=== PATIENT | male | born 1960 | race African-American/Black ===

== ENCOUNTER 2016-08-22 03:37 | Emergency (ER) | payer MEDICAID ==
[~2016-08-22] VITALS: Ht 182.9 cm; Wt 100.7 kg
[2016-08-22 03:39] VITALS: BP 135/88
[2016-08-22] MEDS ORDERED: HYDROcodone/APAP 5/325 TABLET ONE (04:22)
[2016-08-22] MEDS ORDERED: AMOXICILLIN/CLAV 875-125MG TABLET PO ONE (04:30)
[2016-08-22] MEDS ORDERED: HYDROcodone/APAP 5/325 TABLET PO ONE (04:30)
== END 2016-08-22 04:37 | disposition home or self-care (01) ==
LOC: ED 04:20
DX: J20.9 Acute bronchitis, unspecified (principal); J01.00 Acute maxillary sinusitis, unspecified; F17.200 Nicotine dependence, unspecified, uncomplicated
CPT/HCPCS: 99283

== ENCOUNTER 2016-09-25 18:54 | Emergency (ER) | payer MEDICAID, OTHER ==
[~2016-09-25] VITALS: Ht 182.9 cm; Wt 97.6 kg
[2016-09-25 18:56] VITALS: BP 128/84
== END 2016-09-25 21:05 | disposition home or self-care (01) ==
LOC: ED 20:59
DX: S16.1XXA Strain of muscle, fascia and tendon at neck level, initial encounter (principal); S39.012A Strain of muscle, fascia and tendon of lower back, initial encounter; S80.01XA Contusion of right knee, initial encounter; M54.9 Dorsalgia, unspecified; G89.29 Other chronic pain; V49.49XA Driver injured in collision with other motor vehicles in traffic accident, initial encounter; Y93.89 Activity, other specified; Y99.8 Other external cause status; Y92.488 Other paved roadways as the place of occurrence of the external cause
CPT/HCPCS: 72050; 72110; 99284

== ENCOUNTER 2016-09-28 19:42 | Emergency (ER) | payer OTHER ==
[~2016-09-28] VITALS: Ht 182.9 cm; Wt 96.8 kg
[2016-09-28 19:43] VITALS: BP 128/73
[2016-09-28] MEDS ORDERED: DIAZEPAM 5 MG TABLET PO ONE (20:00)
[2016-09-28] MEDS ORDERED: KETOROLAC 30 MG/1 ML IM ONE (20:00)
[2016-09-28] MEDS ORDERED: DIAZEPAM 5 MG TABLET ONE (20:14)
[2016-09-28] MEDS ORDERED: KETOROLAC 30 MG/1 ML ONE (20:14)
== END 2016-09-28 21:22 | disposition home or self-care (01) ==
LOC: ED 21:16
DX: S33.5XXA Sprain of ligaments of lumbar spine, initial encounter (principal); V89.2XXA Person injured in unspecified motor-vehicle accident, traffic, initial encounter; Y93.89 Activity, other specified; Y99.8 Other external cause status; Y92.89 Other specified places as the place of occurrence of the external cause
CPT/HCPCS: 96372; 99284; J1885